=== PATIENT | male | born 1955 | race Caucasian/White ===

== ENCOUNTER 2016-12-25 17:50 | Emergency (ER) | payer OTHER ==
[2016-12-25 18:55] LABS: BASOPHIL 0.3 % (0-2); EOSINOPHIL 2.2 % (0-5); HCT 31.4 % (42.0-52.0); HGB 9.8 g/dl (13.2-18.0); LYMPHOCYTE 38.5 % (15-48); MCH 25.2 pg (25.0-31.0); MCHC 31.2 g/dL (32.0-36.0); MCV 80.7 fL (78.0-100.0); MONOCYTE 12.8 % (0-12); MPV 8.5 fL (6.0-9.5); NEUTROPHIL 46.2 % (41-80); PLT 580 K/uL (150-400); RBC 3.89 M/uL (4.70-6.00); RDW 16.3 % (11.5-14.0); WBC 7.6 K/uL (4.0-10.5)
[2016-12-25 19:03] LABS: INR 1.17 (0.9-1.2); PROTHROMBIN TIME 14.5 SECONDS (11.7-14.0)
[2016-12-25 19:05] LABS: D-DIMER 0.81 ug/mLFEU (0.00-0.41)
[2016-12-25 19:12] LABS: ALBUMIN 3.2 g/dL (3.4-4.8); BILIRUBIN - TOTAL 0.4 mg/dL (0.1-1.0); CREATININE 0.4 mg/dL (0.7-1.2); GLOBULIN (CALCULATION) 4.2 g/dL (2.2-4.2); POTASSIUM 3.9 mmol/L (3.5-5.1); TOTAL PROTEIN 7.4 g/dL (6.4-8.3)
[2016-12-25 22:16] LABS: BILIRUBIN NEGATIVE (NEGATIVE); BLOOD NEGATIVE Ery/uL (NEGATIVE); CLARITY CLEAR (CLEAR); COLOR YELLOW (YELLOW); GLUCOSE (U) 3+ mg/dL (NORMAL); KETONE (U) NEGATIVE (NEGATIVE); LEUKOCYTES NEGATIVE Leu/uL (NEGATIVE); NITRITE NEGATIVE (NEGATIVE); PROTEIN NEGATIVE (NEGATIVE); pH 7.5 (5.0-9.0)
== END 2016-12-25 22:35 | disposition home or self-care (01) ==
LOC: FER 17:50
PROVIDERS: Emergency Medicine Emergency Medical Services; Internal Medicine
DX: D64.9 Anemia, unspecified (principal); R82.90 Unspecified abnormal findings in urine; E11.9 Type 2 diabetes mellitus without complications; I10 Essential (primary) hypertension; E78.5 Hyperlipidemia, unspecified; Z88.0 Allergy status to penicillin; Z79.84 Long term (current) use of oral hypoglycemic drugs; Z79.82 Long term (current) use of aspirin; Z79.899 Other long term (current) drug therapy
CPT/HCPCS: 36415; 71275; 80053; 81003; 85025; 85379; 85610; 85651; 85730; 86140; 87040; 87088; 93005; Q9967